=== PATIENT | female | born 1990 | race Caucasian/White ===

== ENCOUNTER 2020-12-20 08:26 | Emergency (ER) | payer OTHER, SELFPAY ==
[2020-12-20 08:35] VITALS: BP 105/74; PULSE 79; RESP 14; TEMP 36.9; O2SAT 99
[2020-12-20] MEDS: HYDROcodone/acetaminophen (*CRX) 7.5-325 MG TABLET 1 TAB PO (09:28)
[2020-12-20] MEDS: KETOROLAC (*BKC) 60 MG/2 ML VIAL IM (09:28)
--- NOTE | 2020-12-20 09:29 | ED.BACK ---
HPI - Back Pain/Injury General Chief Complaint: Back Pain/Injury Stated Complaint: back spasms Time Seen by Provider: 12/20/20 08:48 Source: patient Mode of arrival: ambulatory Limitations: no limitations History of Present Illness HPI Narrative: Patient presents with intermittent mos lower back more on the right side started 4 to 5 months ago, got worse yesterday. Patient have 18 months old baby. Patient denies radiation of pain, patient also denies any fever, chills, nausea, vomiting, abdominal pain, urinary symptoms. Patient reported the pain gets worse with movement and bending, better if she remaining still. Related Data Allergies Allergy/AdvReac Type Severity Reaction Status Date / Time No Known Allergies Allergy Verified 12/20/20 09:23 Review of Systems Review of Systems: Narrative: CONSTITUTIONAL: Denies fever, chills, or sweats. EYES: Denies visual changes, redness, or discharge. ENT: Denies rhinorrhea, congestion, sore throat, or otalgia. CARDIOVASCULAR: Denies chest pain, palpitations, or edema. RESPIRATORY: Denies cough or dyspnea. GASTROINTESTINAL: Denies abdominal pain, nausea, vomiting, or diarrhea. GENITOURINARY: Denies dysuria or hematuria. SKIN: Denies rash or itching. MUSCULOSKELETAL: Denies back pain, joint pain, or myalgia. NEUROLOGIC: Denies headache, numbness, or weakness. PSYCHIATRIC: Denies anxiety or depression. PMFSH Past Medical History Medical History Healthy adult Surgical History Surgical History No pertinent past surgical history Family History Family History Grandparent Diabetes mellitus Hypertension Family history of elevated blood lipids Family history of cardiovascular disease Father Family history of elevated blood lipids Mother Family history of elevated blood lipids Social History Social History Smoking status: Never smoker Alcohol intake: never Exam Narrative: Exam Narrative: General appearance: Well-developed, well-nourished Skin: Normal color Head: Normocephalic, nontraumatic Eyes: Clear conjunctiva ENT: Oropharynx normal, ears normal, nose normal Neck: Supple, nontender Chest and respiratory: Airway patent, no respiratory distress, no accessory muscle use Heart: Regular rate/rhythm Abdomen: Soft, nontender, no organomegaly, quiet bowel sounds Vascular: Normal peripheral pulses, normal capillary refill. Musculoskeletal: Slight diffuse tenderness across lumbar area, no bruises, no swelling, no rash, limited range of motion in the lumbar area because of pain. Negative straight leg raising test bilaterally. Neurologic: Alert and oriented ?3, TIPPLE OILER is normal as tested, no gross motor deficit Course Course Emergency Course: Improving Vital Signs Vital signs: Vital Signs Temperature 36.9 C 12/20/20 08:35 Pulse Rate 79 12/20/20 08:35 Respiratory Rate 14 12/20/20 08:35 Blood Pressure 105/74 12/20/20 08:35 Pulse Oximetry 99 12/20/20 08:35 Temperature 36.9 C 12/20/20 08:35 Pulse Rate 79 12/20/20 08:35 Respiratory Rate 14 12/20/20 08:35 Blood Pressure 105/74 12/20/20 08:35 Pulse Oximetry 99 12/20/20 08:35 MDM - Back Pain/Injury MDM Narrative Medical decision making narrative: Lower back musculoskeletal strain/sprain is my concern. [place] 7.5 mg, Toradol 60 mg IM ordered. Further plan to follow Differential Diagnosis Differential diagnosis: Likely other (Lower back musculoskeletal strain/sprain) Critical Care Time Critical Care Time C
[2020-12-20 09:41] VITALS: BP 107/74; PULSE 76; RESP 18; O2SAT 100
== END 2020-12-20 09:42 | disposition home or self-care (01) ==
PROVIDERS: Emergency Provider Emergency Medicine; PCP Family Medicine
DX: S39.012A Strain of muscle, fascia and tendon of lower back, initial encounter (principal); X58.XXXA Exposure to other specified factors, initial encounter
CPT/HCPCS: 96372; 99283; A9270; J1885

== ENCOUNTER 2023-08-02 11:14 | Emergency (ER) | payer BC, SELFPAY ==
--- NOTE | 2023-08-02 11:18 | ED.URI ---
HPI - URI/Sore Throat General Chief Complaint: Upper Respiratory Infection Stated Complaint: Cough Time Seen by Provider: 08/02/23 11:30 Source: patient, RN notes reviewed and old records reviewed Mode of arrival: ambulatory Limitations: no limitations History of Present Illness HPI Narrative: 33-year-old female who presents to [facility] with complaints of a 3 week duration of a cough with initial body aches which have resolved. Patient reports greenish yellowish mucous expectorated. Patient denies any present fevers, reports sinus congestion and some headache pain also. Patient reports that she has been taking Zyrtec, DayQuil,NyQuil and also cough drops with no resolution of her symptoms. MD elicited complaint: cough, rhinorrhea, nasal congestion and sinus pain Onset (ago): week(s) (3) Description of mucous: yellow and green Treatments prior to arrival: other (Zyrtec, DayQuil, NyQuil and cough drops) Related Data Allergies Allergy/AdvReac Type Severity Reaction Status Date / Time sulfate ion Allergy Hives Verified 08/02/23 11:30 Review of Systems Review of Systems: CONSTITUTIONAL: Denies malaise, chills, sweats, or fever. EYES: Denies visual changes, redness, or discharge. ENT: Reports rhinorrhea, congestion, sinus pain, no otalgia or sore throat. CARDIOVASCULAR: Denies chest pain, palpitations, or edema. RESPIRATORY: Reports cough.? Denies dyspnea. GASTROINTESTINAL: Denies abdominal pain, nausea, vomiting, diarrhea SKIN: Denies rash or itching. MUSCULOSKELETAL: Denies myalgia. NEUROLOGIC: Reports headache. All systems reviewed & are unremarkable except as noted in HPI and below PMFSH Past Medical History Medical History Generalized anxiety disorder Healthy adult Migraine with aura and without status migrainosus, not intractable Peptic ulcer Tension headache Umbilical hernia without obstruction and without gangrene Surgical History Surgical History No pertinent past surgical history Family History Family History Grandparent Diabetes mellitus Hypertension Family history of elevated blood lipids Family history of cardiovascular disease Father Family history of elevated blood lipids Mother Family history of elevated blood lipids Social History Social History Social History: not a smoker Smoking status: Never smoker Alcohol intake: never Lack of Transportation: No Lack of Food: Never True Current Housing: I Have Housing Concerned About Future Housing: No Difficulty Paying Gas/Electric Bills: No Difficulty Paying for Meds: No Currently Unemployed: No Education: Bachelor's Degree Difficulty w/ Childcare or Family Care: No Comments At time of signature, agree with nursing past medical, surgical, social and family history. There is no relevant family history pertinent to the presenting complaint Exam Narrative: GENERAL: Well-appearing, well-nourished, and in no acute distress. HEAD: Normocephalic EYES: PERRLA, conjunctivae clear ENT: Nares clear, turbinates edematous and erythematous,yellowish discharge. Mucous membranes moist. TM pearly avery with dull light reflex bilaterally; no tragal tenderness. Oropharynx erythematous without lesions. Tonsils not enlarged and without exudate, no drooling, no hoarseness, no trismus, uvula midline. NECK: Supple. No lymphadenopathy CHEST: Clear to auscultation, breath sounds equal. No wheezing, rhonchi, rales, or stridor. No respiratory distress, can't speak a full sentence without coughing, no dyspena or tachypnea noted SAO2 99% on room air. HEART: Regular rate and rhythm. No murmur heard. SKIN: Warm, dry, no rash. NEURO: Alert and oriented x3. PSYCH: Normal mood and affect Course [place]
[2023-08-02 11:23] VITALS: BP 132/81; PULSE 67; RESP 18; TEMP 36; O2SAT 99
== END 2023-08-02 11:40 | disposition home or self-care (01) ==
PROVIDERS: Emergency Provider Registered Nurse; PCP Family Medicine
DX: J01.40 Acute pansinusitis, unspecified (principal); R05.1 Acute cough
CPT/HCPCS: 99213; G0463